=== PATIENT | female | born 1960 | race Asian ===

== ENCOUNTER 2021-06-24 10:26 | Emergency (ER) | payer OTHER ==
[~2021-06-24] VITALS: Ht 162.6 cm; Wt 68.2 kg
[2021-06-24 11:32] LABS: COVID AG,FIA SOURCE NASAL SWAB
[2021-06-24 13:00] VITALS: BP 155/69
[2021-06-24] MEDS ORDERED: ALLO-97 PO (13:00)
[2021-06-24] MEDS ORDERED: UREA198C TP (13:00)
[2021-06-24] MEDS ORDERED: NIFE-39 PO (13:00)
[2021-06-24] MEDS ORDERED: CLON0.1T2 PO (13:00)
[2021-06-24] MEDS ORDERED: METF-1211 PO (13:00)
[2021-06-24] MEDS ORDERED: TELM1TAB32 PO (13:00)
[2021-06-24] MEDS ORDERED: ACETAMINOPHEN 500 MG TABLET PO ONE (13:00)
[2021-06-24] MEDS ORDERED: ASPI-1450 PO (13:00)
[2021-06-24] MEDS ORDERED: DOCU-385 PO (13:00)
[2021-06-24] MEDS ORDERED: NIRM1TAB5 PO (13:07)
== END 2021-06-24 13:36 | disposition home or self-care (01) ==
LOC: EMS 10:26
DX: U07.1 COVID-19 (principal); J06.9 Acute upper respiratory infection, unspecified; I10 Essential (primary) hypertension; E11.9 Type 2 diabetes mellitus without complications; Z88.1 Allergy status to other antibiotic agents
CPT/HCPCS: 87430; 99283